=== PATIENT | male | born 1980 | race African-American/Black ===

== ENCOUNTER 2017-12-06 15:18 | Emergency (ER) | payer MEDICAID ==
[2017-12-06] MEDS: KETOROLAC 30 MG INJ IM (17:20)
== END 2017-12-06 18:04 | disposition home or self-care (01) ==
LOC: E/R 15:18
DX: M79.604 Pain in right leg (principal); M79.605 Pain in left leg; I10 Essential (primary) hypertension; E11.9 Type 2 diabetes mellitus without complications
CPT/HCPCS: 96372; 99284-25